=== PATIENT | male | born 1970 | race Two or more races ===

== ENCOUNTER 2020-03-10 22:52 | Emergency (ER) | payer SELFPAY ==
--- NOTE | 2020-03-11 00:30 | ER Document Report ---
ED Medical Screen (RME) - General Chief Complaint: Abdominal Pain Stated Complaint: SEVERE ABDOMINAL PAIN/VOMITING Time Seen by Provider: 03/11/20 00:28 Primary Care Provider: KELLEN COX MD [Primary Care Provider] - Follow up as needed Mode of Arrival: Wheelchair Information source: Patient Notes: 49-year-old male patient presents emergency department with left upper and left lower quadrant abdominal pain that began at 9:00 this morning. Patient reports associated nausea with vomiting. He denies any diarrhea. He denies fever. He denies any abdominal surgeries. Tenderness to the left lower quadrant. I have greeted and performed a rapid initial assessment of this patient. A comprehensive ED assessment and evaluation of the patient, analysis of test results and completion of the medical decision making process will be conducted by additional ED providers. I have specifically instructed the patient or family members with the patient to immediately return to any nursing staff should anything change in the patient's condition or with their chief complaint. TRAVEL OUTSIDE OF THE [place] IN LAST 30 DAYS: No - Related Data Allergies/Adverse Reactions: Heparin Analogues [Heparin Agents] Allergy (Severe, Verified 05/03/15 18:11) Thrombocytopenia Past Medical History - Past Medical History Cardiac Medical History: Reports: Hx Hypertension Pulmonary Medical History: Denies: Hx Tuberculosis Endocrine Medical History: Reports: Hx Diabetes Mellitus Type 2. Denies: Hx Diabetes Mellitus Type 1 Psychiatric Medical History: Denies: Hx Depression Past Surgical History: Reports: Hx Cardiac Surgery - Paced - Immunizations Hx Diphtheria, Pertussis, Tetanus Vaccination: No Physical Exam - Vital signs Vitals: Temp Pulse Resp BP Pulse Ox 98.4 F 65 20 157/113 H 98 03/10/20 23:40 03/10/20 23:40 03/10/20 23:40 03/10/20 23:40 03/10/20 23:40 Course - Vital Signs Vital signs: Temp Pulse Resp BP Pulse Ox 98.4 F 65 20 157/113 H 98 03/10/20 23:40 03/10/20 23:40 03/10/20 23:40 03/10/20 23:40 03/10/20 23:40 Doctor's Discharge - Discharge Referrals: KELLEN COX MD [Primary Care Provider] - Follow up as needed
[2020-03-11] MEDS ORDERED: MORPHINE SULFATE 10 MG/ML INJ IV ONE ×3 (00:33→12:53)
[2020-03-11] MEDS ORDERED: ONDANSETRON HCL INJ/PF 4 MG/2 ML SDV IV ONE ×3 (00:33→12:53)
[2020-03-11] MEDS ORDERED: NORMAL SALINE 1000 ML 1,000 ML IV ONE (00:33)
[2020-03-11 01:18] LABS: ABSOLUTE LYMPHOCYTES (AUTO) 1.1 10^3/uL (0.5-4.7); ABSOLUTE MONOCYTES (AUTO) 0.4 10^3/uL (0.1-1.4); ABSOLUTE NEUT (AUTO) 8.2 10^3/uL (1.7-8.2); BASOPHILS % (AUTO) 0.3 % (0-2); EOSINOPHILS % (AUTO) 0.2 % (0-6); HEMATOCRIT 43.3 % (37.9-51.0); HEMOGLOBIN 14.7 g/dL (13.5-17.0); LYMPHOCYTES % (AUTO) 11.6 % (13-45); MEAN CORPUSCULAR VOLUME 88 fl (80-97); MONOCYTES % (AUTO) 4.4 % (3-13); PLATELET COUNT 252 10^3/uL (150-450); RED BLOOD COUNT 4.92 10^6/uL (4.35-5.55); RED CELL DISTRIBUTION WIDTH 14.5 % (11.5-14.0); SEGMENTED NEUTROPHILS % (AUTO) 83.5 % (42-78); TOTAL CELLS COUNTED % (AUTO) 100 %; WHITE BLOOD COUNT 9.9 10^3/uL (4.0-10.5)
[2020-03-11 01:20] LABS: ALBUMIN 5.1 g/dL (3.5-5.0); ALKALINE PHOSPHATASE 100 U/L (38-126); ANION GAP 11 (5-19); ASPARTATE AMINO TRANSFERASE 22 U/L (17-59); BILIRUBIN,TOTAL 0.6 mg/dL (0.2-1.3); BLOOD UREA NITROGEN 24 mg/dL (7-20); CARBON DIOXIDE 30 mmol/L (22-30); CHLORIDE 101 mmol/L (98-107); GLUCOSE 153 mg/dL (75-110); POTASSIUM 4.6 mmol/L (3.6-5.0); TOTAL PROTEIN 8.4 g/dL (6.3-8.2)
[2020-03-11 01:26] LABS: APPEARANCE,URINE SLIGHTLY-CLOUDY; BILIRUBIN,URINE NEGATIVE (NEGATIVE); COLOR,URINE YELLOW; GLUCOSE, URINE 150 mg/dL (NEGATIVE); KETONES,URINE 20 mg/dL (NEGATIVE); LEUKOCYTE ESTERASE,URINE NEGATIVE (NEGATIVE); NITRITE,URINE NEGATIVE (NEGATIVE); PROTEIN,URINE 100 mg/dL (NEGATIVE); UROBILINOGEN,URINE NEGATIVE mg/dL (<2.0)
[2020-03-11] MEDS: NORMAL SALINE 1000 ML 1,000 ML IV PRN ×2 (04:10→05:11)
--- NOTE | 2020-03-11 04:13 | ER Document Report ---
ED GI/ - General Mode of Arrival: Wheelchair Information source: Patient TRAVEL OUTSIDE OF THE [place] IN LAST 30 DAYS: No - HPI Patient complains to provider of: Abdominal pain, Vomiting Onset: Yesterday Timing/Duration: Intermittent Quality of pain: Cramping, Sharp Severity at maximum: Severe Severity in ED: Severe Pain Level: 5 Location: LUQ, LLQ Associated symptoms: Nausea, Vomiting Exacerbated by: Movement, Walking Relieved by: Denies Similar symptoms previously: No Recently seen / treated by doctor: No - Related Data Home Medications: metformin, amlodipine, simvastatin <MARGARETTE MCLEOD - Last Filed: 03/11/20 10:06> <BRIGHT GREY - Last Filed: 03/11/20 19:58> - General Chief Complaint: Abdominal Pain Stated Complaint: SEVERE ABDOMINAL PAIN/VOMITING Time Seen by Provider: 03/11/20 00:28 Primary Care Provider: KELLEN COX MD [Primary Care Provider] - Follow up as needed Notes: 49-year-old male presented to ED for complaint of abdominal pain left lower quadrant started 9:00 in the morning. He states he has had some nausea and vomiting denies any diarrhea or fever. He denies any abdominal surgeries. He states he does not have any history of any diverticulosis or diverticulitis. He is alert oriented speaking in full sentences. He does have a history of high blood pressure cholesterol and diabetes type 2. (MARGARETTE MCLEOD) - Related Data Allergies/Adverse Reactions: Heparin Analogues [Heparin Agents] Allergy (Severe, Verified 03/11/20 12:52) Thrombocytopenia Past Medical History - General Information source: Patient - Social History Smoking Status: Never Smoker Frequency of alcohol use: None Drug Abuse: None Occupation: Labor Lives with: Family Family History: Malignancy Patient has homicidal ideation: No - Past Medical History Cardiac Medical History: Reports: Hx Hypercholesterolemia, Hx Hypertension Pulmonary Medical History: Reports: None EENT Medical History: Reports: None Neurological Medical History: Reports: None Endocrine Medical History: Reports: Hx Diabetes Mellitus Type 2 Renal/ Medical History: Reports: None Malignancy Medical History: Reports None GI Medical History: Reports: None Musculoskeletal Medical History: Reports None Skin Medical History: Reports None Psychiatric Medical History: Reports: None Traumatic Medical History: Reports: None Infectious Medical History: Reports: None Surgical Hx: Negative Past Surgical History: Reports: None - Immunizations Hx Diphtheria, Pertussis, Tetanus Vaccination: No Hx Pneumococcal Vaccination: 06/16/14 <MARGARETTE MCLEOD - Last Filed: 03/11/20 10:06> Review of Systems - Review of Systems Constitutional: No symptoms reported EENT: No symptoms reported Cardiovascular: No symptoms reported Respiratory: No symptoms reported Gastrointestinal: No symptoms reported, Abdominal pain, Nausea, Vomiting. denies: Diarrhea Genitourinary: No symptoms reported Male Genitourinary: No symptoms reported Musculoskeletal: No symptoms reported Skin: No symptoms reported Hematologic/Lymphatic: No symptoms reported Neurological/Psychological: No symptoms reported -: Yes All other systems reviewed and negative <MARGARETTE MCLEOD - Last Filed: 03/11/20 10:06> Physical Exam - Vital signs Interpretation: Normal, Hypertensive - General General appearance: Appears well, Alert - HEENT Head: Normocephalic, Atraumatic Eyes: Normal Pupils: PERRL - Respiratory Respiratory status: No respiratory distress Chest status: Nontender Breath sounds: Normal Chest palpation: Normal - Cardiovascular Rhythm: Regular Heart sounds: Normal auscultation Murmur: No - Abdominal Inspection: Normal Distension: No distension Bowel sounds: Normal Tenderness: Tender - Left lower abdomen Organomegaly: No organomegaly - Back Back: Normal, Nontender - Extremities General upper extremity: Normal inspection, Nontender, Normal color, Normal ROM, Normal temperature General lower extremity: Normal inspection, Nontender, Normal color, Normal ROM, Normal temperature, Normal weight bearing. No: Madonna's sign - Neurological Neuro grossly intact: Yes Cognition: Normal Orientation: AAOx4 [place] Coma Scale Eye Opening: Spontaneous [place] Coma Scale Verbal: Oriented [place] Coma Scale Motor: Obeys Commands [place] Coma Scale Total: 15 Speech: Normal Motor strength normal: LUE, RUE, LLE, RLE Sensory: Normal - Psychological Associated symptoms: Normal affect, Normal mood - Skin Skin Temperature: Warm Skin Moisture: Dry Skin Color: Normal <MARGARETTE MCLEOD - Last Filed: 03/11/20 10:06> - Vital signs Vitals: Temp Pulse Resp BP Pulse Ox 98.4 F 65 20 157/113 H 98 03/10/20 23:40 03/10/20 23:40 03/10/20 23:40 03/10/20 23:40 03/10/20 23:40 Course - Laboratory Result Diagrams: 03/11/20 00:49 03/11/20 00:49 - Diagnostic Test Radiology reviewed: Image reviewed, Reports reviewed <MARGARETTE MCLEOD - Last Filed: 03/11/20 10:06> - Laboratory Result Diagrams: 03/11/20 00:49 03/11/20 00:49 <BRIGHT GREY - Last Filed: 03/11/20 19:58> - Re-evaluation Re-evalutation: 03/11/20 08:34 [facility] vascular surgery was called concerning the new renal infarct with renal artery occlusion. They stated since the symptoms had been 24 hours there was nothing that they could do vascular surgery was that he would need to be seen by the hospitalist in the hospital and worked up to find out why he infarcted and treat him symptomatically. I consulted Dr. Marti the service coordinator rn provider relations and she stated this was not something that she needed to handle this was something that needed to be handled by the hospitalist on the medical floor to find out why he was in a hyper coagulable state and treat him symptomatically. I then paged the hospitalist and consulted them they stated this could be done outpatient. I called hematology Dr. Jackson she stated that she thought this needed to be initially treated inpatient and she will talk to the hospitalist and call me back. 03/11/20 10:06 Hospitalist did call me back and stated that the patient still needed to be transferred after I spoke with the hospitalist I called divided again and requested to speak with the vascular surgeon. Second vascular surgeon Dr. Thapa stated that the patient did not need any vascular surgery that the kidney was past salvageable there was no embolectomy to be done it did not wear you got a bed the patient cannot have vascular surgery at this time. He stated that the patient needed to work be worked up to find out why he was in a hypercoagulable state and to ensure that he did not have repercussions from being in the state and he needed to be coagulated. I spoke with Dr. Goldman who stated he will come down and see the patient. I have spoken to Juanita Grey [facility] who will follow the patient. (MARGARETTE MCLEOD) 03/11/20 12:43 Disposition given by J. Augsburger, WALLPAPER HANGER HELPER at 1000am. Patient has a left kidney that is highly concerning for renal infarction but also has a possible thrombus of the right renal artery. Dr. Gera Goldman, hospitalist was consulted by night WALLPAPER HANGER HELPER for admission due to other vascular surgeons that she spoke with saying that the kidney was not salvageable and therefore he did not require to be transferred. Bedside assessment done of patient and agree with previous practitioners assessment. Dr. Goldman was brought into patient's care prior to me taking on this patient's care. After excepting disposition from night nurse practitioner, Sher[place], Dr. Goldman had already assessed patient and felt that he does need a arterial ultrasound of his kidneys. He would consult with vascular surgeon at [facility] because he does feel that this patient does need to be transferred for concern of narrowing of his right renal artery. Patient's arterial Doppler of his renals did not show any stenosis. 1100- Dr. Goldman consulted with [facility]'s vascular surgeon, Dr. Colin Elam, who wants to patient to come to [facility] immediately. Dr. Brady also stated that Dr. Elam wanted patient on aspirin 325mg po, Plavix 300 mg po and arixta 1/2mg/kg SC of the typical dose. He also stated that the transfer need to be ER to ER for emergent transfer. patient's vital signs are stable.1245-patient medicated with morphine for pain. Vital signs are stable. pt given 5mg of morphine for pain control and zofran IVP. Patient is agreeable with transfer, communicated through Martti. Patient accepted to [facility] for ER to ER to t hen be seen by vascular surgeon. KASHIF completed to [facility] and is going by EMS. VSS, 03/11/20 19:50 03/11/20 19:57 (BRIGHT GREY) - Vital Signs Vital signs: Temp Pulse Resp BP Pulse Ox 97.8 F 65 23 H 162/94 H 97 03/11/20 12:31 03/10/20 23:40 03/11/20 12:58 03/11/20 12:58 03/11/20 12:58 - Laboratory Laboratory results interpreted by me: 03/11/20 03/11/20 03/11/20 00:43 00:49 00:49 RDW 14.5 H Lymph % (Auto) 11.6 L Seg Neutrophils % 83.5 H BUN 24 H Creatinine 1.61 H Est GFR ( Amer) 56 L Est GFR (MDRD) Non-Af 46 L Glucose 153 H Total Protein 8.4 H Albumin 5.1 H Urine Protein 100 H Urine Glucose (UA) 150 H Urine Ketones 20 H Urine Ascorbic Acid 40 H Discharge <MARGARETTE MCLEOD - Last Filed: 03/11/20 10:06> <BRIGHT GREY - Last Filed: 03/11/20 19:58> - Discharge Clinical Impression: left renal infarction, Hypertension, suspected right renal thrombus Condition: Stable Disposition: [facility] Referrals: KELLEN COX MD [Primary Care Provider] - Follow up as needed
--- NOTE | 2020-03-11 05:44 | RADIOLOGY REPORT (SQ) ---
EXAM DESCRIPTION: CT ABDOMEN PELVIS WITH IV CONTRAST COMPLETED DATE/TME: 03/11/2020 04:02 CLINICAL HISTORY: 49 years, Male, left lower quad abdominal pain COMPARISON: 05/03/2015 TECHNIQUE: Axial CT images of the abdomen and pelvis were obtained after the injection of IV contrast. Sagittal and coronal reformats were performed. DLP 1001 Images stored on PACS. All CT scanners at this facility use dose modulation, iterative reconstruction, and/or weight based dosing when appropriate to reduce radiation dose to as low as reasonably achievable (ALARA). [facility]: Dose Right [facility]: CareDose [facility]: Dose Right [facility]: Teradose 4D [facility]: [employer] LIMITATIONS: None. FINDINGS: The lung bases are clear. The liver, gallbladder, pancreas, spleen, and adrenal glands appear unremarkable. The right kidney enhances normally with no evidence of hydronephrosis. There is wedge-shaped nonenhancement of the upper and lower pole of the left kidney, worse along the lower pole, on both the venous and delayed phase. There appears to be a filling defect within the branches of the left renal artery along the upper pole (coronal images 39-41 the branches of the left renal artery along the lower pole are not well opacified. There is no hydronephrosis or perinephric fluid collection. There is a punctate nonobstructing stone along the lower pole the left kidney. There is no intraperitoneal free air or fluid. There is no lymphadenopathy. The abdominal aorta is normal in caliber. The stomach and small bowel are unremarkable. The appendix is not uniquely identified, however there are no pericecal inflammatory changes. The colon contains a moderate amount of stool. The urinary bladder and prostate gland appear unremarkable. There are no lytic or blastic bone lesions. IMPRESSION: Wedge-shaped nonenhancing areas of the upper and lower pole of the left kidney, highly concerning for renal infarction. Possible thrombus within the branches in the right renal artery along the upper pole with poor enhancement of the left renal artery supplying the lower pole. Pyelonephritis is also a differential diagnosis. Emergent vascular consultation is recommended. The above findings were discussed with and acknowledged by JOSEF Pruitt at 4:42 AM on 03/11/2020. TECHNICAL DOCUMENTATION: Quality ID # 436: Final reports with documentation of one or more dose reduction techniques (e.g., Automated exposure control, adjustment of the mA and/or kV according to patient size, use of iterative reconstruction technique) copyright 2010 [employer]- All Rights Reserved
[2020-03-11 09:49] LABS: INTERNATIONAL RATION (INR) 1.09; PROTHROMBIN TIME 14.1 SEC (11.4-15.4)
[2020-03-11] MEDS ORDERED: CLOPIDOGREL BISULFATE 300 MG TABLET PO ONE (11:14)
[2020-03-11] MEDS ORDERED: ASPIRIN 81 MG TABLET, CHEWABLE PO ONE (11:14)
[2020-03-11] MEDS ORDERED: FONDAPARINUX SODIUM INJ 5 MG/0.4 ML DISP.SYRIN SUBCUT ONE (11:32)
--- NOTE | 2020-03-11 11:47 | RADIOLOGY REPORT (SQ) ---
EXAM DESCRIPTION: DUPLEX ART/RASHEED FLOW COMPLETE IMAGES COMPLETED DATE/TIME: 03/11/2020 11:36 am REASON FOR STUDY: eval for renal stenosis, thrombus on R COMPARISON: None. TECHNIQUE: Realtime and static grayscale images acquired. Selected color Doppler, velocities and spe ctral images recorded. LIMITATIONS: None. FINDINGS: RIGHT KIDNEY: RENAL ARTERY VELOCITIES: 185 cm/sec. Segmental artery velocity 68 cm/sec. RENAL VEIN: Color doppler flow present, patent. VELOCITY RATIO: 1.6. No thrombus. KIDNEY: Normal size. No significant pathology. LEFT KIDNEY: RENAL ARTERY VELOCITIES: 49 cm/sec. Segmental artery velocity 26 cm/sec. RENAL VEIN: Color doppler flow present, patent. VELOCITY RATIO: 1.1. No thrombus. KIDNEY: Normal size. Known infarctions. BLADDER: Normal. OTHER: No other significant finding. IMPRESSION: No evidence of thrombus in the renal arteries. COMMENT: NORMAL RENAL ARTERY/AORTA VELOCITY RATIO IS LESS THAN OR EQUAL TO 3.5. TECHNICAL DOCUMENTATION: JOB ID: [id number] 2010 [employer]- All Rights Reserved Reading location - IP/workstation name: [email or web address]
--- NOTE | 2020-03-11 12:39 | PDOC CONSULTATION ---
Consultation Consult Date: 03/11/20 Provider Consulted: JOCELYN COLLAZO Consult reason:: Renal infarct History of Present Illness Admission Date/PCP: KELLEN COX MD History of Present Illness: VERONIQUE ROJAS is a 49 year old male with a history of diabetes mellitus and hypertension, who presents to the hospital with complaints of acute onset left flank pain which started yesterday. Patient described the pain as squeezing in sensation. Was initially very severe. Denied any fever or chills. Denied history of blood clots. Denied any shortness of breath or chest pain. Denied any hematuria. In the ER, patient was noted to have a left renal infarct. Referred to hospitalist service for evaluation. Past Medical History Cardiac Medical History: Reports: Hyperlipidema, Hypertension Pulmonary Medical History: Reports: None Denies: Tuberculosis EENT Medical History: Reports: None Neurological Medical History: Reports: None Endocrine Medical History: Reports: Diabetes Mellitus Type 2 Denies: Diabetes Mellitus Type 1 Renal/ Medical History: Reports: None Malignancy Medical History: Reports: None GI Medical History: Reports: None Musculoskeltal Medical History: Reports: None Skin Medical History: Reports: None Psychiatric Medical History: Reports: None Denies: Depression Traumatic Medical History: Reports: None Infectious Medical History: Reports: None Past Surgical History Past Surgical History: Reports: None Social History Lives with: Family Smoking Status: Never Smoker Frequency of Alcohol Use: Rare Hx Recreational Drug Use: No Hx Prescription Drug Abuse: No Family History Family History: Malignancy, Other - Denies history of blood clots Parental Family History Reviewed: Yes Children Family History Reviewed: NA Sibling(s) Family History Reviewed.: NA Medication/Allergy Home Medications: Metformin HCl 500 mg PO DAILY 05/03/15 Amlodipine Besylate 5 mg PO DAILY #30 tab 05/07/15 Cephalexin Monohydrate [Keflex 500 mg Capsule] 500 mg PO TID #15 capsule 05/07/15 Oxycodone HCl/Acetaminophen [Percocet 5-325 mg Tablet] 1 tab PO Q4HP PRN #15 tablet 05/07/15 Oxycodone HCl/Acetaminophen [Percocet 5-325 mg Tablet] 1 - 2 tab PO ASDIR PRN #15 tablet 12/22/15 Rivaroxaban [Xarelto 15 mg Tablet] 15 mg PO BID #30 tablet 04/11/16 Allergies/Adverse Reactions: Heparin Analogues [Heparin Agents] Allergy (Severe, Verified 05/03/15 18:11) Thrombocytopenia Review of Systems Constitutional: ABSENT: fatigue, fever(s) Eyes: ABSENT: visual disturbances Nose, Mouth, and Throat: ABSENT: headache(s) Cardiovascular: ABSENT: chest pain Respiratory: ABSENT: cough, dyspnea Gastrointestinal: PRESENT: abdominal pain. ABSENT: vomiting Genitourinary: ABSENT: dysuria, hematuria Musculoskeletal: ABSENT: joint swelling Integumentary: ABSENT: diaphoresis Neurological: ABSENT: confusion Endocrine: PRESENT: polyuria - Occasionally but not currently Physical Exam Vital Signs: Temp Pulse Resp BP Pulse Ox 98.7 F 65 18 144/84 H 94 03/11/20 10:31 03/10/20 23:40 03/11/20 11:32 03/11/20 11:32 03/11/20 11:32 Intake & Output 03/10/20 03/11/20 03/12/20 06:59 06:59 06:59 Intake Total 1999 Balance 1999 Weight 80.6 kg General appearance: PRESENT: no acute distress, cooperative Mouth exam: PRESENT: neck supple Neck exam: ABSENT: JVD Respiratory exam: PRESENT: clear to auscultation christina, unlabored. ABSENT: tachypnea, wheezes Cardiovascular exam: PRESENT: RRR, +S1, +S2. ABSENT: tachycardia GI/Abdominal exam: PRESENT: soft, tenderness - Left paraumbilical region. ABSENT: distended, firm, guarding, rebound, rigid Extremities exam: ABSENT: calf tenderness, pedal edema Neurological exam: PRESENT: alert, awake, oriented to person, oriented to place, oriented to time, oriented to situation Psychiatric exam: ABSENT: agitated, anxious Focused psych exam: ABSENT: pressured speech Skin exam: ABSENT: jaundice Results Laboratory Results: 03/11/20 00:49 03/11/20 00:49 03/11/20 03/11/20 03/11/20 00:43 00:49 00:49 WBC 9.9 RBC 4.92 Hgb 14.7 Hct 43.3 MCV 88 MCH 30.0 MCHC 34.0 RDW 14.5 H Plt Count 252 Seg Neutrophils % 83.5 H Sodium 141.9 Potassium 4.6 Chloride 101 Carbon Dioxide 30 Anion Gap 11 BUN 24 H Creatinine 1.61 H Est GFR ( Amer) 56 L Glucose 153 H Calcium 10.0 Total Bilirubin 0.6 AST 22 Alkaline Phosphatase 100 Total Protein 8.4 H Albumin 5.1 H Lipase 51.0 Urine Color YELLOW Urine Appearance SLIGHTLY-CLOUDY Urine pH 5.0 Ur Specific [place] 1.030 Urine Protein 100 H Urine Glucose (UA) 150 H Urine Ketones 20 H Urine Blood NEGATIVE Urine Nitrite NEGATIVE Ur Leukocyte Esterase NEGATIVE Urine WBC (Auto) 2 Urine RBC (Auto) 1 Impressions: Abdomen/Pelvis CT 03/11/20 04:02 IMPRESSION: Wedge-shaped nonenhancing areas of the upper and lower pole of the left kidney, highly concerning for renal infarction. Possible thrombus within the branches in the right renal artery along the upper pole with poor enhancement of the left renal artery supplying the lower pole. Pyelonephritis is also a differential diagnosis. Emergent vascular consultation is recommended. The above findings were discussed with and acknowledged by JOSEF Pruitt at 4:42 AM on 03/11/2020. TECHNICAL DOCUMENTATION: Quality ID # 436: Final reports with documentation of one or more dose reduction techniques (e.g., Automated exposure control, adjustment of the mA and/or kV according to patient size, use of iterative reconstruction technique) copyright 2011 [employer]- All Rights Reserved Renal Artery Duplex 03/11/20 10:48 IMPRESSION: No evidence of thrombus in the renal arteries. Assessment and Plan - Diagnosis (1) Renal infarct Is this a current diagnosis for this admission?: Yes (2) Acute renal failure Is this a current diagnosis for this admission?: Yes (3) Hypertensive urgency Is this a current diagnosis for this admission?: Yes (4) Diabetes mellitus type 2 in nonobese Is this a current diagnosis for this admission?: Yes - Plan Summary Summary: Patient presents with acute renal failure in the setting of acute onset left renal infarct. CT abdomen with contrast shows significant infarct of the left kidney and causing to question a possible right renal thrombus. I discussed findings with the radiologist who states that it seems about 60% of the left kidney is infarcted. He also recommended arterial Doppler for further evaluation of a questionable right renal thrombus. Patient denies history of CKD and last baseline creatinine was in 2016 which was normal. I was informed by Linda Swartz NP that the case was discussed with [facility] vascular surgery who had recommended that patient is out of the window for revascularization and should be medically managed at this point. I called [facility] to discuss the case with vascular surgeon Dr. Colin Elam myself about patient's entire picture including renal failure with unknown recent baseline as well as the size of the infarct and to see if we should pursue only medical management at this point versus attempt at revascularization. Dr. Elam recommends that revascularization should be attempted urgently despite patient's presentation yesterday if we want to stand a chance at saving his kidneys. He has accepted the patient should be transferred ER to ER to [facility] and recommends rapid COVID testing, aspirin 325 mg, Plavix 300 mg, and anticoagulation with Arixtra at half dosing since patient is allergic to heparin. I have discussed plan with ER provider. - Time Time Spent with patient: 35 or more minutes
[2020-03-11 13:01] VITALS: BP 162/94
--- NOTE | 2020-03-11 14:42 | EKG REPORT ---
SEVERITY:- BORDERLINE ECG - SINUS RHYTHM BORDERLINE PROLONGED QT INTERVAL : Confirmed by: Shelby Diaz MD 11-Mar-2020 14:41:42
== END 2020-03-11 13:09 | disposition short-term general hospital (02) ==
LOC: ER 22:52
DX: N28.0 Ischemia and infarction of kidney (principal); N17.9 Acute kidney failure, unspecified; R11.2 Nausea with vomiting, unspecified; R10.32 Left lower quadrant pain; R10.12 Left upper quadrant pain; R10.814 Left lower quadrant abdominal tenderness; D68.59 Other primary thrombophilia; I10 Essential (primary) hypertension; E78.00 Pure hypercholesterolemia, unspecified; E11.9 Type 2 diabetes mellitus without complications; Z79.84 Long term (current) use of oral hypoglycemic drugs; Z79.899 Other long term (current) drug therapy; Z88.8 Allergy status to other drugs, medicaments and biological substances; Z20.828 Contact with and (suspected) exposure to other viral communicable diseases
CPT/HCPCS: 93005; 96376; 99285; 96372; 96361; 96374; 96375; 36415; 83690; 85025; 85610; 85730; 87635; 80053; 81001; 93975; 74177; 93010; J3490; J2270; J2405; J1652; J7030; C9803